=== PATIENT | female | born 2000 | race African-American/Black ===

== ENCOUNTER 2020-10-17 13:29 | Emergency (ER) | payer OTHER ==
[~2020-10-17] VITALS: Ht 154.9 cm; Wt 117.9 kg
[2020-10-17 14:05] VITALS: BP 150/115
--- NOTE | 2020-10-17 14:12 | ER.PDOC ---
General Chief Complaint: Vaginal Bleed Stated Complaint: FEMALE /ABD PAIN Time seen by MD: 14:11 Source: patient Exam Limitations: no limitations History of Present Illness Initial Comments patient here for one week of vaginal bleeding and cramping, she does not think she is , she has had abnoral periods since her child was born last january. Timing/Duration: other Severity/Quality: moderate Vaginal Bleed: abnormal bleeding Associated Symptoms: denies symptoms Allergies: Coded Allergies: No Known Allergies (Unverified , 12/17/15) Home Meds No Active Prescriptions or Reported Meds Past Medical History Medical History: no pertinent history Surgical History: no surgical history Review of Systems Constitutional: denies chills EENTM: denies eye pain Cardiovascular: denies chest pain Gastrointestinal: denies abdominal pain Genitourinary: denies flank pain Musculoskeletal: denies neck pain Skin: denies rash Psychiatric/Neurological: denies headache Endocrine: denies flushing Hematologic/Lymphatic: denies anemia Physical Exam General Appearance: No Apparent Distress EENT: eyes nml inspection Neck: nml inspection Cardiovascular/Respiratory: Regular Rate, Rhythm Abdomen: Non Tender, Soft Extremities: Normal Range of Motion Neurologic/Psychiatric: frog shaker II-XII NML as Tested, No Motor/Sensory Deficits, Alert, Normal Mood/Affect Skin: Normal Color Results/Orders Results/Orders Orders - RAMU LOPEZ MD Cbc With Auto Diff (10/17/20 14:09) Comprehensive Metabolic Panel (10/17/20 14:09) PT (10/17/20 14:09) Partial Thromboplastin Time. (10/17/20 14:09) Urinalysis (10/17/20 14:09) Saline Lock (10/17/20 14:09) Hcg, Quantitative (10/17/20 14:09) Vital Signs Date Time Temp Pulse Resp B/P (MAP) Pulse Ox O2 Delivery O2 Flow Rate FiO2 10/17/20 14:05 98.3 80 20 150/115 (127) 97 Room Air 10/17/20 14:05 98.3 80 20 97 10/17/20 14:05 98.3 80 20 Laboratory Tests Test 10/17/20 14:52 White Blood Count 7.4 10^3/uL (4.5-12.5) Red Blood Count 4.65 10^6/uL (4.00-5.20) Hemoglobin 13.1 g/dL (12.4-14.8) Hematocrit 40.7 % (36.0-46.0) Mean Corpuscular Volume 87.5 fL (78-100) Mean Corpuscular Hemoglobin 28.2 pg (26-34) Mean Corpuscular Hemoglobin Concent 32.2 g/dL (33-36.5) L Red Cell Distribution Width 14.3 % (11.5-14.5) Platelet Count 254 10^3/uL (150-400) Mean Platelet Volume 10.6 fL (7.8-11.0) Neutrophils (%) (Auto) 61.9 % (41.0-85.0) Lymphocytes (%) (Auto) 29.4 % (24.0-44.0) Monocytes (%) (Auto) 6.9 % (5.0-12.0) Neutrophils # (Auto) 4.6 10^3/uL (1.8-8.0) Lymphocytes # (Auto) 2.17 10^3/uL1 (1.2-5.2) Monocytes # (Auto) 0.5 10^3/uL (0.0-0.4) H Absolute Immature Granulocyte (auto 0.01 10^3 u/L (0-2) Absolute Eosinophils (auto) 0.1 10^3/uL (0.0-0.2) Immature Granulocytes % 0.10 % (0.00-0.50) Eosinophils % 1.6 % (0.0-5.0) Basophils % 0.1 % (0.0-0.2) Basophils # 0.0 10^3/uL (0.0-0.1) Prothrombin Time 9.7 SEC (9.3-11.3) Prothrombin Time INR (Non-Therap) 1.0 Activated Partial Thromboplast Time 23.6 SEC (24.67-30.72) Sodium Level 140 mmol/L (132-145) Potassium Level 3.9 mmol/L (3.6-5.2) Chloride Level 106.0 mmol/L (96-109) Carbon Dioxide Level 27.8 mmol/L (20.0-32) Anion Gap 10.1 Blood Urea Nitrogen 5 mg/dL (7-18) L Creatinine 0.71 mg/dL (0.59-1.40) Estimated GFR () 127.0 (>/=60) Est GFR (CKD-EPI)(Non-Afr Tongan) 105.0 (>/=60) BUN/Creatinine Ratio 7.0 Glucose Level 86 mg/dL (70-110) Calcium Level 8.9 mg/dL (8.4-10.5) Total Bilirubin 0.2 mg/dL (0.2-1.0) Aspartate Amino Transferase (AST) 13 U/L (0-35) Alanine Aminotransferase (ALT) 23 U/L (12-78) Alkaline Phosphatase 121 U/L (50-136) Total Protein 7.7 g/dL (6.4-8.2) Albumin 3.3 g/dL (3.4-5.0) L Globulin 4.4 Albumin/Globulin Ratio 0.750 Human Chorionic Gonadotropin, Quant < 5 mIU/mL EKG/XRAY/CT/US EKG: NSR, no ST T wave changes ER DEPART Departure Time of Disposition: 15:52 Disposition: 01 HOME, SELF-CARE Impression: Primary Impression: Dysfunctional uterine bleeding Condition: Stable Patient Instructions: Uterine Bleeding, Dysfunctional Referrals: KAYE POSADA (PCP) PRIMARY CARE PROVIDER DESIREE LONGORIA DO Additional Instructions: return for any worsening symptoms Scripts No Active Prescriptions or Reported Meds Duration or Time Spent with Pa: RAMU CHOI MD Oct 17, 2020 14:12
--- NOTE | 2020-10-17 14:23 | NUR ---
ARRIVAL PT ARRIVED TO ED C/O ABD CRAMPING AND EXCESSIVE VAG BLEEDING THAT STARTED THREE WEEKS AGO. STATES THAT SHE HAD [place] AND IT WAS NEGATIVE. PT ALERT, ORIENTED, NO OTHER NEEDS DETERMINED AT THIS TIME. CONNECTED TO BEDSIDE MONITOR.
[2020-10-17 14:57] LABS: BASOPHIL % 0.1 % (0.0-0.2); EOSINOPHIL # 0.1 10^3/uL (0.0-0.2); EOSINOPHIL % 1.6 % (0.0-5.0); LYMPHOCYTES # 2.17 10^3/uL1 (1.2-5.2); LYMPHOCYTES % 29.4 % (24.0-44.0); MEAN CORP HGB 28.2 pg (26-34); MONOCYTES # 0.5 10^3/uL (0.0-0.4); MONOCYTES % 6.9 % (5.0-12.0); NEUTROPHIL # 4.6 10^3/uL (1.8-8.0); NEUTROPHILS % 61.9 % (41.0-85.0); PLATELET COUNT 254 10^3/uL (150-400); RED CELL DISTRIBUTION WIDTH 14.3 % (11.5-14.5)
[2020-10-17 15:21] LABS: ALANINE AMINOTRANSFERASE(ML) 23 U/L (12-78); ALKALINE PHOSPHATASE 121 U/L (50-136); ASPARTATE AMINO TRANSFERASE 13 U/L (0-35); CALCIUM 8.9 mg/dL (8.4-10.5); CARBON DIOXIDE 27.8 mmol/L (20.0-32); GLUCOSE 86 mg/dL (70-110)
== END 2020-10-17 16:00 | disposition home or self-care (01) ==
LOC: ER 13:29
DX: N93.8 Other specified abnormal uterine and vaginal bleeding (principal)
CPT/HCPCS: 36415; 80053; 84702; 85025; 85610; 85730; 99283